=== PATIENT | male | born 1975 | race Two or more races ===

== ENCOUNTER 2025-07-16 20:14 | Emergency (ER) | payer OTHER ==
[~2025-07-16] VITALS: Ht 185.4 cm; Wt 111.9 kg
--- NOTE | 2025-07-16 21:02 | ED.PDOC ---
Musculoskeletal HPI Comments 49 y/o M, presents to the ED for CC of upper extremity pain. Patient states, he has been experiencing worsening left-shoulder and left sided back pain [id number]. Patient reports, to do repetitive movements at work and believes symptoms may have been exacerbated d/t this. Chief Complaint: Upper Extremity Time Seen by MD: 21:00 Reviewed Notes: Nurses Notes, Medications, Allergies Allergies: Coded Allergies: NO KNOWN ALLERGIES (Unverified , 07/16/25) Information Source: Patient Mode of Arrival: Ambulatory Location: Left Extremity Location: Shoulder Timing: Days Prehospital treatment: None Severity: Mild Able to Move Extremity: Yes Mechanism: Spontaneous Circumstances: Work Related Symptoms: Pain Associated signs and symptoms: Shoulder pain Past Medical History PAST MEDICAL HISTORY: Denies Surgical History: Denies all surgeries Family History Family History: Unknown Social History Smoker: Non-Smoker Alcohol: Denies ETOH Use Drugs: Denies Drug Use Lives In: Home Constitutional: denies: chills, diaphoresis, fatigue, fever, malaise, sweats, weakness, others EENTM: denies: blurred vision, double vision, ear bleeding, ear discharge, ear drainage, ear pain, ear ringing, eye pain, eye redness, hearing loss, mouth pain, mouth swelling, nasal discharge, nose bleeding, nose congestion, nose pain, photophobia, tearing, throat pain, throat swelling, voice changes, others Respiratory: denies: cough, hemoptysis, orthopnea, SOB at rest, shortness of breath, SOB with excertion, stridor, wheezing, others Cardiovascular: denies: chest pain, dizzy spells, diaphoresis, Dyspnea on exertion, edema, irregular heart beat, left arm pain, lightheadedness, palpitations, PND, syncope, others Gastrointestinal: denies: abdomen distended, abdominal pain, blood streaked bowels, constipated, diarrhea, dysphagia, difficulty swallowing, hematemesis, melena, nausea, poor appetite, poor fluid intake, rectal bleeding, rectal pain, vomiting, others Genitourinary: denies: burning, dysuria, flank pain, frequency, hematuria, incontinence, penile discharge, penile sore, pain, testicle pain, testicle sw elling, urgency, others Neurological: denies: dizziness, fainting, headache, left sided numbness, left sided weakness, numbness, paresthesia, pre-existing deficit, right sided numbness, right sided weakness, seizure, speech problems, tingling, tremors, weakness, others Musculoskeletal: reports: others (left-shoulder pain); denies: back pain, gout, joint pain, joint swelling, muscle pain, muscle stiffness, neck pain Integumetry: denies: bruises, change in color, change in hair/nails, dryness, laceration, lesions, lumps, rash, wounds, others Allergic/Immunocompromised: denies: Difficulty Healing, Frequent Infections, Hives, Itching, others Hematologic/Lymphatic: denies: anemia, blood clots, easy bleeding, easy bruising, swollen glands, others Endocrine: denies: excessive hunger, excessive sweating, excessive thirst, excessive urination, flushing, intolerance to cold, intolerance to heat, unexplained weight gain, unexplained weight loss, others Psychiatric: denies: anxiety, bipolar disorder, depression, hopeless, panic disorder, schizophrenia, sleepless, suicidal, others All Other Systems: Reviewed and Negative Physical Exam General Appearance: No Apparent Distress, Normal HEENT: Normal ENT Inspection, Pharynx Normal Neck: Full Range of Motion, Non-Tender, Normal, Normal Inspection Respiratory: Chest Non-Tender, Lungs Clear, No Accessory Muscle Use, No Respiratory Distress, Normal Breath Sounds Cardiovascular: No Edema, No Murmur, No Gallop, Normal Peripheral Pulses, Regular Rate/Rhythm Breast Exam: Deferred Gastrointestinal: No Organomegaly, Non Tender, No Pulsatile Mass, Normal Bowel Sounds, Soft Genitalia: Deferred Pelvic: Deferred Rectal: Deferred Extremities: No calf tenderness, Normal capillary refill, Normal inspection, Normal range of motion, Non-tender, No pedal edema Musculoskeletal : Location: Left Extremity Location: Shoulder Apperance: Tenderness Neurologic: Alert, baler operator II-XII nml as Tested, No Motor Deficits, Normal Affect, Normal Mood, No Sensory Deficits Cerebellar Function: Normal Reflexes: Normal Skin: Dry, Normal Color, Warm Lymphatic: No Adenopathy Was a procedure done? Was a procedure done?: No Differential Diagnosis EXT Differential Diagnosis: Strain X-Ray, Labs, Meds, VS Vital Signs Date Time Temp Pulse Resp B/P (MAP) Pulse Ox O2 Delivery O2 Flow Rate FiO2 07/16/25 21:51 98.4 101 18 133/83 (100) 100 98.4 07/16/25 21:51 Room Air 0 07/16/25 20:16 97.8 100 20 110/85 96 97.8 Current Medications Medications (Trade) Dose Ordered Sig/Juanito Route Start Time Stop Time Status Last Admin Ketorolac Tromethamine (Toradol Injection) 15 mg ONCE ONCE IM 07/16/25 21:00 07/16/25 21:01 DC 07/16/25 21:43 The following tests were ordered, and results were reviewed by me: left scapula xy I reviewed and agreed with the following test results read by other provider: left scapula xy I discussed treatments and results with medical personnel and: PATIENT Comprehensive systems review obtained and negative except for what is stated in the HPI. Time of 1ST Reevaluation: 21:30 Reevaluation 1ST: Unchanged Patient Education/Counseling: Diagnosis, Treatment Family Education/Counseling: No Family Present Comments This is a patient presents with left scapular pain. He states that when he works he does tend to hunch over. Examination shows point tenderness at the infrascapular area. X-ray however does not show any fractures or abnormal lesions. Patient likely has muscle spasm of the infrascapular muscle. He is stable for discharge with a prescription of Flexeril and Motrin. Departure 1 Departure Time of Disposition: 22:52 Impression: Primary Impression: Muscle strain of scapular region Disposition: 01 HOME / SELF CARE / HOMELESS Condition: Good e-Prescriptions Ibuprofen Micronized (MOTRIN TABLET) 600 Mg Tb 600 MG PO TID PRN, #15 TAB *Black box warning-NSAIDS can increase risk of MN & hypertension, GI irritation, ulceration, bleed, perferation. Do not use post cardiac surgery. Use short duration/lowest effective dose. Prov: ALEKSANDAR DUMONT MD 07/16/25 Cyclobenzaprine Hcl (CYCLOBENZAPRINE HCL) 7.5 Mg Tab 7.5 MG PO Q8HP PRN for 3 Days, #9 TAB Prov: ALEKSANDAR DUMONT MD 07/16/25 Discharged With: Self Critical Care Note Critical Care Time?: No Stability Stability form required: No Heart Score Heart Score: Heart Score Response (Comments) Value History N/A 0 EKG N/A 0 Age N/A 0 Risk Factors N/A 0 Troponin N/A 0 Total 0 I personally scribed for [facility]KS[facility]ONT [facility] on 07/16/25 at 21:02. Electronically submitted by Jazmine Matson ([email or web address]). I personally scribed for ALEKSANDAR DUMONT MD ([facility]) on 07/16/25 at 21:04. Electronically submitted by Jazmine Matson ([email or web address]). I personally scribed for [facility]LEKSANDAR DUMONT [facility] ([facility] on 07/16/25 at 21:36. El ectronically submitted by Jazmine Matson ([email or web address]). I personally scribed for ALEKSANDAR DUMONT MD ([email or web address]) on 07/16/25 at 21:36. Elect ronically submitted by Jazmine Matson ([email or web address]). ALEKSANDAR DUMONT MD Jul 16, 2025 21:02
[2025-07-16] MEDS: KETOROLAC TROMETH 30 MG/ML 1ML VIAL IM ONE (21:43)
[2025-07-16 21:51] VITALS: BP 133/83; PULSE 101; RESP 18; TEMP 98.4; O2SAT 100
--- NOTE | 2025-07-16 22:09 | DVH ---
EXAM: XY L SCAPULA COMPLETE XRAY INDICATION: pain TECHNIQUE:: 2 views of the left scapula COMPARISON: None FINDINGS/IMPRESSION: No radiographic evidence of an acute osseous abnormality. There is no acute fracture, osseous malalignment, or aggressive focal osseous lesion. Degenerative change of the left acromioclavicular joint.
[2025-07-16] MEDS ORDERED: IBU600T PO (22:53)
[2025-07-16] MEDS ORDERED: CYCL-838 PO (22:53)
== END 2025-07-16 23:15 | disposition home or self-care (01) ==
LOC: ER 20:14
DX: S46.912A Strain of unspecified muscle, fascia and tendon at shoulder and upper arm level, left arm, initial encounter (principal); X58.XXXA Exposure to other specified factors, initial encounter; Y93.89 Activity, other specified; Y92.89 Other specified places as the place of occurrence of the external cause; Y99.8 Other external cause status
CPT/HCPCS: 73010; 96372; 99283; J1885